=== PATIENT | female | born 1945 | race Caucasian/White ===

== ENCOUNTER 2016-11-16 09:37 | Outpatient (CLI) | payer BC, MEDICARE | END 2016-11-16 09:38 | disposition home or self-care (01) | DX: Z12.31 Encounter for screening mammogram for malignant neoplasm of breast (principal) ==

== ENCOUNTER 2017-01-23 20:19 | Emergency (ER) | payer BC ==
[2017-01-23] MEDS ORDERED: predniSONE 20 MG TABLET PO STA (21:03)
[2017-01-23] MEDS ORDERED: predniSONE 20 MG TABLET ONE (21:09)
== END 2017-01-23 21:14 | disposition home or self-care (01) ==
DX: R22.0 Localized swelling, mass and lump, head (principal); I10 Essential (primary) hypertension; J35.9 Chronic disease of tonsils and adenoids, unspecified; Z79.899 Other long term (current) drug therapy; Z88.0 Allergy status to penicillin
CPT/HCPCS: 99282; 99283; J7512

== ENCOUNTER 2018-02-04 08:00 | Outpatient (CLI) | payer MEDICARE, BC ==
[2018-02-04 18:08] LABS: ALBUMIN 4.3 g/dL (3.2-5.5); ALBUMIN/GLOBULIN RATIO 1.3 (1.0-2.2); ALKALINE PHOSPHATASE 60 IU/L (42-121); ALT ALANINE AMINOTRANSFERASE 19 IU/L (10-60); AST ASPARTATE AMINOTRANSFERASE 24 IU/L (10-42); BILIRUBIN,TOTAL 0.8 mg/dL (0.2-1.0); BUN - BLOOD UREA NITROGEN 18 mg/dL (6-20); CALCIUM 9.1 mg/dL (8.5-10.3); CARBON DIOXIDE - CO2 27 mmol/L (21-32); CHLORIDE 99 mmol/L (101-111); CHOL/HDL RATIO 5.4 (<4.4); CHOLESTEROL 249 mg/dL; CREATININE 0.7 mg/dL (0.4-1.0); GFR - MDRD 82 (>89); GLUCOSE 98 mg/dL (70-100); HDL CHOLESTEROL 46 mg/dL; LDL CHOLESTEROL,CALCULATED 181 mg/dL; LDL/HDL RATIO 3.9 (<4.4); SODIUM 134 mmol/L (135-145); TOTAL PROTEIN 7.5 g/dL (6.7-8.2); VLDL CHOLESTEROL 22 mg/dL
== END 2018-02-04 23:59 ==
LOC: LAB.S 08:00
PROVIDERS: ATTEND Nurse Practitioner Family
DX: I10 Essential (primary) hypertension (principal); E78.5 Hyperlipidemia, unspecified; E87.6 Hypokalemia
CPT/HCPCS: 36415; 80053; 80061; 83721; 84443

== ENCOUNTER 2018-03-13 11:25 | Outpatient (CLI) | payer MEDICARE, BC ==
--- NOTE | 2018-03-14 17:11 | Mammography Report ---
DIGITAL SCREENING MAMMOGRAM: 03/13/2018 CLINICAL INDICATION: A 72-year-old for screening. COMPARISON: 11/2016, 11/2015, 01/2015, 10/2013, 11/2011, 11/2010. TECHNIQUE: Routine CC and MLO projections were obtained of the breasts. FINDINGS: The breasts again demonstrate scattered fibroglandular densities bilaterally. Coarse, typically benign calcifications are present. No suspicious masses, clustered microcalcifications, or regions of architectural distortion are identified. IMPRESSION: BENIGN FINDINGS. RECOMMENDATION: Routine annual screening unless otherwise clinically indicated. BIRADS category 2 benign findings. STANDARD QUALIFYING STATEMENTS 1. This examination was reviewed with the aid of Computed-Aided Detection (CAD). 2. A negative or benign imaging report should not delay biopsy if clinically suspicious findings are present. Consider surgical consultation if warranted. More than 5% of cancers are not identified by imaging. 3. Dense breasts may obscure an underlying neoplasm. TD: 03/14/2018 15:18
== END 2018-03-13 11:26 | disposition home or self-care (01) ==
LOC: DI 11:25
PROVIDERS: ATTEND Nurse Practitioner Family
DX: Z12.31 Encounter for screening mammogram for malignant neoplasm of breast (principal)
CPT/HCPCS: 77067

== ENCOUNTER 2019-04-07 08:02 | Outpatient (CLI) | payer MEDICARE, BC ==
--- NOTE | 2019-04-07 08:40 | Mammography Report ---
Reason: SCREENING MAMMO Procedure Date: 04/07/2019 Accession Number: [id number] / [id number] Procedure: DOMI - Screening Mammo w/Baldemar CPT Code: FULL RESULT: EXAM: Screening Mammo w/Baldemar DATE: 04/07/2019 8:32 AM CLINICAL HISTORY: Screening encounter. No reported risk factors. TECHNIQUE: (B) - Bilateral CC and MLO views were obtained. COMPARISON: 03/13/2018 through 01/15/2015. PARENCHYMAL PATTERN: (A) - The breast(s) demonstrate(s) scattered fibroglandular densities. FINDINGS: There are coarse typically benign calcifications. There are no suspicious masses, calcifications, or areas of distortion. IMPRESSION: Benign findings. BI-RADS category 2. RECOMMENDATION: (ANNUAL) - Recommend routine annual screening mammography. BI-RADS CATEGORY: (2) - Benign Findings. STANDARD QUALIFYING STATEMENTS: 1. This examination was not reviewed with the aid of Computer-Aided Detection (CAD). 2. A negative or benign imaging report should not preclude biopsy if clinically suspicious findings are present. 3. Dense breasts may obscure an underlying neoplasm. 4. This examination was reviewed with the aid of 3D breast imaging (tomosynthesis).
== END 2019-04-07 08:03 | disposition home or self-care (01) ==
LOC: DI 08:02
DX: Z12.31 Encounter for screening mammogram for malignant neoplasm of breast (principal)
CPT/HCPCS: 77063; 77067

== ENCOUNTER 2019-04-09 08:21 | Outpatient (CLI) | payer MEDICARE, BC ==
[2019-04-09 11:36] LABS: BASOPHILS % (AUTO) 0.5 %; EOSINOPHILS # (AUTO) 0.3 10^3/uL (0.0-0.7); EOSINOPHILS % (AUTO) 5.2 %; HGB - HEMOGLOBIN 13.1 g/dL (12.0-16.0); LYMPHOCYTES # (AUTO) 2.8 10^3/uL (1.5-3.5); LYMPHOCYTES % (AUTO) 47.3 %; MEAN CORPUSCULAR HEMOGLOBIN 27.5 pg (27.0-31.0); MEAN CORPUSCULAR HGB CONC 31.6 g/dL (32.0-36.0); MEAN CORPUSCULAR VOLUME 87.2 fL (81.0-99.0); MEAN PLATELET VOLUME 9.8 fL (7.9-10.8); MONOCYTES # (AUTO) 0.5 10^3/uL (0.0-1.0); NEUTROPHILS # (AUTO) 2.3 10^3/uL (1.5-6.6); NEUTROPHILS % (AUTO) 38.8 %; PLT - PLATELET COUNT 302 10^3/uL (130-450); RED BLOOD COUNT 4.76 10^6/uL (4.20-5.40); RED CELL DISTRIBUTION WIDTH 13.2 % (12.0-15.0)
[2019-04-09 11:42] LABS: ALBUMIN 4.2 g/dL (3.2-5.5); ALBUMIN/GLOBULIN RATIO 1.2 (1.0-2.2); ALKALINE PHOSPHATASE 61 IU/L (42-121); ALT ALANINE AMINOTRANSFERASE 22 IU/L (10-60); AST ASPARTATE AMINOTRANSFERASE 26 IU/L (10-42); BILIRUBIN,TOTAL 1.2 mg/dL (0.2-1.0); BUN - BLOOD UREA NITROGEN 20 mg/dL (6-20); CALCIUM 9.2 mg/dL (8.5-10.3); CARBON DIOXIDE - CO2 28 mmol/L (21-32); CHLORIDE 99 mmol/L (101-111); CHOL/HDL RATIO 6.1 (<4.4); CHOLESTEROL 280 mg/dL; CREATININE 0.7 mg/dL (0.4-1.0); GFR - MDRD 82 (>89); GLUCOSE 103 mg/dL (70-100); HDL CHOLESTEROL 46 mg/dL; LDL CHOLESTEROL,CALCULATED 200 mg/dL; LDL/HDL RATIO 4.3 (<4.4); SODIUM 139 mmol/L (135-145); TOTAL PROTEIN 7.7 g/dL (6.7-8.2); VLDL CHOLESTEROL 34 mg/dL
[2019-04-09 11:49] LABS: HB2 TOTAL 13.3 g/dL; HEMOGLOBIN A1C 0.56 g/dL
== END 2019-04-09 08:22 | disposition home or self-care (01) ==
LOC: LAB.F 08:21
PROVIDERS: ATTEND Registered Nurse
DX: E78.5 Hyperlipidemia, unspecified (principal); I10 Essential (primary) hypertension; E87.6 Hypokalemia
CPT/HCPCS: 36415; 80053; 80061; 83036; 83721; 84443; 85025

== ENCOUNTER 2020-04-26 07:53 | Outpatient (CLI) | payer MEDICARE, BC ==
[2020-04-26 15:11] LABS: BASOPHILS % (AUTO) 0.7 %; EOSINOPHILS # (AUTO) 0.2 10^3/uL (0.0-0.7); EOSINOPHILS % (AUTO) 3.2 %; HGB - HEMOGLOBIN 13.8 g/dL (12.0-16.0); LYMPHOCYTES # (AUTO) 3.1 10^3/uL (1.5-3.5); LYMPHOCYTES % (AUTO) 51.7 %; MEAN CORPUSCULAR HEMOGLOBIN 29.1 pg (27.0-31.0); MEAN CORPUSCULAR HGB CONC 32.6 g/dL (32.0-36.0); MEAN CORPUSCULAR VOLUME 89.1 fL (81.0-99.0); MEAN PLATELET VOLUME 10.3 fL (7.9-10.8); MONOCYTES # (AUTO) 0.5 10^3/uL (0.0-1.0); MONOCYTES % (AUTO) 7.5 %; NEUTROPHILS # (AUTO) 2.2 10^3/uL (1.5-6.6); NEUTROPHILS % (AUTO) 36.6 %; PLT - PLATELET COUNT 300 10^3/uL (130-450); RED BLOOD COUNT 4.75 10^6/uL (4.20-5.40); RED CELL DISTRIBUTION WIDTH 12.8 % (12.0-15.0)
[2020-04-26 16:01] LABS: ALBUMIN 4.6 g/dL (3.2-5.5); ALBUMIN/GLOBULIN RATIO 1.7 (1.0-2.2); ALKALINE PHOSPHATASE 53 IU/L (42-121); ALT ALANINE AMINOTRANSFERASE 21 IU/L (10-60); AST ASPARTATE AMINOTRANSFERASE 25 IU/L (10-42); BILIRUBIN,TOTAL 1.3 mg/dL (0.2-1.0); BUN - BLOOD UREA NITROGEN 21 mg/dL (6-20); CALCIUM 9.5 mg/dL (8.5-10.3); CARBON DIOXIDE - CO2 30 mmol/L (21-32); CHLORIDE 100 mmol/L (101-111); CHOL/HDL RATIO 5.7 (<4.4); CHOLESTEROL 274 mg/dL; CREATININE 0.9 mg/dL (0.4-1.0); GLUCOSE 101 mg/dL (70-100); HDL CHOLESTEROL 48 mg/dL; LDL CHOLESTEROL,CALCULATED 203 mg/dL; LDL/HDL RATIO 4.2 (<4.4); SODIUM 138 mmol/L (135-145); TOTAL PROTEIN 7.3 g/dL (6.7-8.2); VLDL CHOLESTEROL 23 mg/dL
== END 2020-04-26 07:54 | disposition home or self-care (01) ==
LOC: LAB.S 07:53
PROVIDERS: ATTEND Registered Nurse
DX: E87.6 Hypokalemia (principal); E78.5 Hyperlipidemia, unspecified; I10 Essential (primary) hypertension
CPT/HCPCS: 36415; 80053; 80061; 83721; 84443; 85025

== ENCOUNTER 2020-11-15 07:52 | Outpatient (CLI) | payer MEDICARE, BC ==
[2020-11-15 15:59] LABS: CHOL/HDL RATIO 5.3 (<4.4); CHOLESTEROL 266 mg/dL; HDL CHOLESTEROL 50 mg/dL; LDL CHOLESTEROL,CALCULATED 189 mg/dL; LDL/HDL RATIO 3.8 (<4.4); VLDL CHOLESTEROL 27 mg/dL
== END 2020-11-15 07:53 | disposition home or self-care (01) ==
LOC: LAB.S 07:52
PROVIDERS: ATTEND Registered Nurse
DX: E78.5 Hyperlipidemia, unspecified (principal)
CPT/HCPCS: 36415; 80061; 83721

== ENCOUNTER 2020-12-14 07:48 | Outpatient (CLI) | payer MEDICARE, BC ==
--- NOTE | 2020-12-14 11:07 | Mammography Report ---
BILATERAL DIGITAL SCREENING MAMMOGRAM 3D/2D: 12/14/2020 CLINICAL: Routine screening. Comparison is made to exams dated: 04/07/2019 mammogram, 03/13/2018 mammogram, 11/16/2016 mammogram, 11/15 mammogram, and 01/15/2015 mammogram - [facility]. There are scattered fibrogla ndular elements in both breasts. No significant masses, calcifications, or other findings are seen in either breast. There has been no significant interval change. IMPRESSION: NEGATIVE There is no mammographic evidence of malignancy. A 1 year screening mammogram is recommended. This exam was interpreted at Station ID: [id number]. NOTE: For mammograms, a report in lay terms will be sent to the patient. Approximately 15% of breast malignancies will not be visualized mammographically. In the management of a palpable breast mass, a negative mammogram must not discourage biopsy of a clinically suspicious lesion. Electronically Signed By: Rikki Farmer M.D. [facility] [place]:12/14/2020 08:51:42 ACR BI-RADS Category 1: Negative 3341F PARENCHYMAL PATTERN: (A) - The breast(s) demonstrate(s) scattered fibroglandular densities. BI-RADS CATEGORY: (1) - 1 RECOMMENDATION: (ANNUAL) - Recommend routine annual screening mammography. [id number] 1 year screening LATERALITY: (B)
== END 2020-12-14 07:49 | disposition home or self-care (01) ==
LOC: DI.S 07:48
PROVIDERS: ATTEND Registered Nurse
DX: Z12.31 Encounter for screening mammogram for malignant neoplasm of breast (principal)

== ENCOUNTER 2022-07-26 07:53 | Outpatient (CLI) | payer MEDICARE, BC ==
--- NOTE | 2022-07-27 09:49 | Mammography Report ---
BILATERAL DIGITAL SCREENING MAMMOGRAM 3D/2D: 07/26/2022 CLINICAL: Routine screening. Comparison is made to exams dated: 12/14/2020 mammogram, 04/07/2019 mammogram, 03/13/2018 mammogram, and 11/16/2016 mammogram - [facility]. There are scattered areas of fibroglandular density in both breasts (category b / 25%-50% glandular t issue). No significant masses, calcifications, or other findings are seen in either breast. There has been no significant interval change. IMPRESSION: NEGATIVE There is no mammographic evidence of malignancy. A 1 year screening mammogram is recommended. Based on the Tyrer Cuzick model (a risk assessment model) the patients lifetime risk is 2.5% and her 10 year risk is 0.0%. According to the ACR, ACS, and NCCN guidelines, an annual breast MRI exam carmencita g with mammogram is recommended if the patients lifetime risk is 20% or greater. This exam was interpreted at Station ID: [id number]. NOTE: For mammograms, a report in lay terms will be sent to the patient. Approximately 15% of breast malignancies will not be visualized mammographically. In the management of a palpable breast mass, a negative mammogram must not discourage biopsy of a clinically suspicious lesion. Electronically Signed By: Willis dang/corinna:07/26/2022 11:01:21 ACR BI-RADS Category 1: Negative 3341F PARENCHYMAL PATTERN: (A) - The breast(s) demonstrate(s) scattered fibroglandular densities. BI-RADS CATEGORY: (1) - 1 RECOMMENDATION: (ANNUAL) - Recommend routine annual screening mammography. [id number] 1 year screening LATERALITY: (B)
== END 2022-07-26 07:54 | disposition home or self-care (01) ==
LOC: DI.S 07:53
DX: Z12.31 Encounter for screening mammogram for malignant neoplasm of breast (principal)

== ENCOUNTER 2023-08-08 09:55 | Outpatient (CLI) | payer MEDICARE, BC ==
--- NOTE | 2023-08-09 09:34 | Mammography Report ---
BILATERAL DIGITAL SCREENING MAMMOGRAM 3D/2D: 08/08/2023 CLINICAL: Routine screening. Comparison is made to exams dated: 07/26/2022 mammogram, 12/14/2020 mammogram, 04/07/2019 mammogram, mammogram, 11/16/2016 mammogram, and 11/15/2015 ultrasound - [facility]. There are scattered areas of fibroglandular density in both breasts (category b / 25%-50% glandular t issue). No significant masses, calcifications, or other findings are seen in either breast. IMPRESSION: NEGATIVE There is no mammographic evidence of malignancy. A 1 year screening mammogram is recommended. Based on the Tyrer Cuzick model (a risk assessment model) the patients lifetime risk is 2.3% and her 10 year risk is 0.0%. According to the ACR, ACS, and NCCN guidelines, an annual breast MRI exam carmencita g with mammogram is recommended if the patients lifetime risk is 20% or greater. This exam was interpreted at Station ID: [id number]. NOTE: For mammograms, a report in lay terms will be sent to the patient. Approximately 15% of breast malignancies will not be visualized mammographically. In the management of a palpable breast mass, a negative mammogram must not discourage biopsy of a clinically suspicious lesion. Electronically Signed By: Melissa Guthrie M.D., PH.D eb/corinna:08/08/2023 23:25:39 letter sent: No_Letter ACR BI-RADS Category 1: Negative 3341F PARENCHYMAL PATTERN: (A) - The breast(s) demonstrate(s) scattered fibroglandular densities. BI-RADS CATEGORY: (1) - 1 Mammogram [id number] 1 year screening LATERALITY: (B)
== END 2023-08-08 09:56 | disposition home or self-care (01) ==
LOC: DI.S 09:55
DX: Z12.31 Encounter for screening mammogram for malignant neoplasm of breast (principal); R92.323 Mammographic fibroglandular density, bilateral breasts

== ENCOUNTER 2024-03-25 03:56 | Emergency (ER) | payer MEDICARE, BC ==
--- NOTE | 2024-03-25 04:09 | ED Physician Documentation ---
History of Present Illness - Stated complaint Stated Complaint: GENERALIZED WEAKNESS - Chief complaint Chief Complaint: Neuro - History obtained from History obtained from: Patient - Additonal information Additional information: HPI from patient. Patient woke at approximately 2:30 AM this morning to use the bathroom. She was pressed to find that she had an unsteady gait. She denies weakness. She initially uses the word "dizziness" and describing why she was unsteady, but she denies vertigo-type sensation (such as spinning or sensation of being pulled in forward or to either side). She denies lightheadedness, and eventually is not sure if dizziness is the right word to describe her symptoms at that time. She says she did speak with her while she was having symptoms and had no difficulty with speech. Aside from denying generalized weakness, she definitively denies any focal/unilateral weakness. In any event, by the time of this HPI, she says the unsteady gait has resolved and she demonstrates by walking around the room (and does so easily and with steady gait). At this point, she is more concerned about nausea and epigastric burning sensation that developed around the same time as when she got up at 2:30 AM to use the bathroom. This symptom has been constant and steadily progressed, with the burning sensation episodically radiating into the anterior midline lower/mid- level chest. There have been no exacerbating or ameliorating factors with any of the symptoms. She denies history of stroke, TIA, GERD. PD PAST MEDICAL HISTORY - Past Medical History Past Medical History: Yes Cardiovascular: Hypertension - Past Surgical History Past Surgical History: No - Present Medications Home Medications: Ambulatory Orders Medication Instructions Recorded Confirmed Enalapril [Vasotec] 20 mg PO DAILY 09/01/13 01/23/17 Amlodipine Besylate 5 mg PO DAILY 01/23/17 01/23/17 Potassium Chloride 10 meq PO DAILY 01/23/17 01/23/17 hydroCHLOROthiazide 25 mg PO DAILY 01/23/17 01/23/17 [Hydrochlorothiazide] predniSONE [Deltasone] 60 mg PO DAILY 5 Days tablet 01/23/17 - Allergies Allergies/Adverse Reactions: Allergies Allergy/AdvReac Type Severity Reaction Status Date / Time Penicillins Allergy Severe Rash Verified 03/25/24 04:07 - Social History Does the pt smoke?: No Smoking Status: Never smoker Does the pt drink ETOH?: No Does the pt have substance abuse?: No - Immunizations Immunizations are current?: No Immunizations: TDAP >10years/unknown - POLST Patient has POLST: No PD ED PE NORMAL - Vitals Vital signs reviewed: Yes - General General: Alert and oriented X 3, No acute distress, Well developed/nourished - Cardiac Cardiac: RRR, No murmur, No gallop, No rub - Respiratory Respiratory: No respiratory distress, Clear bilaterally - Abdomen Abdomen: Normal bowel sounds, Soft, Non tender, Non distended - Derm Derm: Normal color, Warm and dry - Extremities Extremities: No edema Results - Vitals Vitals: Vital Signs - 24 hr 03/25/24 03/25/24 04:04 06:38 Temperature 36.1 C L Heart Rate 72 88 Respiratory 18 18 Rate Blood Pressure 135/100 H 155/89 H O2 Saturation 100 100 Oxygen O2 Source Room air - EKG (time done) No standard instances EKG releavant findings:: EKG personally interpreted by author of this note. Relevant findings are: Rate: Rate (enter#) (72) Rhythm: NSR Pe Ell: Normal Intervals: Normal MI QRS: Normal Ischemia: Normal ST segments, Q waves (V1, V2) - Labs Labs: Laboratory Tests 03/25/24 03/25/24 03/25/24 04:55 04:55 04:55 WBC 8.6 RBC 4.77 Hgb 13.6 Hct 41.2 MCV 86.4 MCH 28.5 MCHC 33.0 RDW 13.0 Plt Count 337 MPV 9.1 Neut # (Auto) 5.7 Lymph # (Auto) 2.1 [place] # (Auto) 0.5 Eos # (Auto) 0.2 Baso # (Auto) 0.1 Absolute Nucleated RBC 0.00 Nucleated RBC % 0.0 Sodium 140 Potassium 3.3 L Chloride 104 Carbon Dioxide 27 Anion Gap 9.0 BUN 20 Creatinine 0.8 Estimated GFR (MDRD) 70 L Glucose 131 H Calcium 9.8 Total Bilirubin 0.5 AST 21 ALT 16 Alkaline Phosphatase 71 Troponin I High Sens 6.1 Total Protein 7.9 Albumin 4.7 Globulin 3.2 Albumin/Globulin Ratio 1.5 Lipase 24 Urine Color Urine Clarity Urine pH Ur Specific [place] Urine Protein Urine Glucose (UA) Urine Ketones Urine Occult Blood Urine Nitrite Urine Bilirubin Urine Urobilinogen Ur Leukocyte Esterase Ur Microscopic Review Urine Culture Comments 03/25/24 05:30 WBC RBC Hgb Hct MCV MCH MCHC RDW Plt Count MPV Neut # (Auto) Lymph # (Auto) [place] # (Auto) Eos # (Auto) Baso # (Auto) Absolute Nucleated RBC Nucleated RBC % Sodium Potassium Chloride Carbon Dioxide Anion Gap BUN Creatinine Estimated GFR (MDRD) Glucose Calcium Total Bilirubin AST ALT Alkaline Phosphatase Troponin I High Sens Total Protein Albumin Globulin Albumin/Globulin Ratio Lipase Urine Color YELLOW Urine Clarity CLEAR Urine pH 5.5 Ur Specific [place] 1.025 Urine Protein NEGATIVE Urine Glucose (UA) NEGATIVE Urine Ketones NEGATIVE Urine Occult Blood NEGATIVE Urine Nitrite NEGATIVE Urine Bilirubin NEGATIVE Urine Urobilinogen 0.2 (NORMAL) Ur Leukocyte Esterase NEGATIVE Ur Microscopic Review NOT INDICATED Urine Culture Comments NOT INDICATED - Rads (name of study) chest xray Relevant Findings:: Prelim report reviewed, See rad report PD Medical Decision Making - ED course Complexity details: reviewed results, re-evaluated patient, considered differential, d/w patient ED course: CBC is entirely normal. Normal high-sensitivity troponin (6.1). Completely normal urinalysis. Mild hypokalemia (3.3), but patient is taking daily potassium. No concerning findings on EKG (Q waves in V1 and V2 but no ST changes to suggest ACS). Unremarkable chest x-ray. She is given 1 L normal saline IV, 4 mg IV Zofran, and 40 mg IV Protonix. She reports significant improvement in the chest burning discomfort with these interventions. Results discussed with patient. CVA-oriented workup is not undertaken, as her symptoms were possibly, though not particularly, suggestive of CVA, but those symptoms have entirely resolved by the time of this evaluation anyway. Thus, I explained to her that TIA remains a possible cause of the unsteady gait she experienced when she first woke up early this a.m. I further explained that she might benefit from other testing outpatient setting in this regard, but that TIA is not a diagnosis that can be demonstrated on any tests in the emergency department. Regarding her chest pain, her description of a burning sensation and her improvement with the Protonix would suggest GERD as a likely cause. Nonetheless, I explained to her that this does not eliminate a cardiac cause is a possibility. This again is another reason for her to need to seek follow-up with her PCP to discuss her symptoms and, and reevaluation, discussed whether further testing is indicated. I advised her to buy either prilosec or nexium and to take one dose per day for two weeks (although she can wait until symptoms reoccur to do so, or else to start tomorrow with first dose of a two-week course of a PPI). Departure - Departure Disposition: 01 Home, Self Care Clinical Impression: Ataxia Chest pain Qualifiers: Chest pain type: unspecified Qualified Code(s): R07.9 - Chest pain, unspecified Condition: Good Instructions: ED Chest Pain Atypical Unkn Cause Follow-Up: CAM SANDOVAL MD [Primary Care Provider] - Comments: There were no concerning nor diagnostic findings on tonight's test. Your EKG was unremarkable and your cardiac enzyme blood test was normal. Your potassium was slightly below normal range (3.3), but not to an extent that would require change in your current medication regimen including the oral potassium that you are already taking. Your urinalysis is normal. The cause of neither of your problems (difficulty with ambulation when he first woke up this morning, burning midline chest pain) is apparent at this time. As we discussed, that the difficulty with coordination and ambulating has resolved leaves open the possibility that you had a TIA. TIA stands for transient ischemic attack; it is basically a stroke due to blockage of an artery to the brain that resolves before any permanent damage is done. Unfortunately, TIA does not show up on any emergency department tests. Realize this is not the definitive diagnosis in this case, just one possible explanation. As for the chest pain, the EKG and cardiac enzyme blood test argue against a cardiac cause of the pain, but these do not rule it out completely. Your description of the symptoms is suggestive of possible heartburn/GERD. If your symptoms happen again, you should take an [id number] acid-blocking medication such as Nexium or Prilosec once per day for 2 weeks. Even if none of your symptoms recur, you should follow-up with your primary care provider as soon as can be arranged. This would be a good idea for reevaluation of your symptoms. You might need further tests even if your symptoms do not recur. Discharge Date/Time: 03/25/24 06:38
[2024-03-25 04:11] VITALS: O2SAT 100
[2024-03-25 05:12] LABS: BASOPHILS # (AUTO) 0.1 10^3/uL (0.0-0.1); BASOPHILS % (AUTO) 0.6 %; EOSINOPHILS # (AUTO) 0.2 10^3/uL (0.0-0.7); EOSINOPHILS % (AUTO) 1.8 %; HCT - HEMATOCRIT 41.2 % (37.0-47.0); HGB - HEMOGLOBIN 13.6 g/dL (12.0-16.0); LYMPHOCYTES # (AUTO) 2.1 10^3/uL (1.5-3.5); LYMPHOCYTES % (AUTO) 24.3 %; MEAN CORPUSCULAR HEMOGLOBIN 28.5 pg (27.0-31.0); MEAN CORPUSCULAR VOLUME 86.4 fL (81.0-99.0); MEAN PLATELET VOLUME 9.1 fL (7.9-10.8); MONOCYTES # (AUTO) 0.5 10^3/uL (0.0-1.0); MONOCYTES % (AUTO) 6.2 %; NEUTROPHILS # (AUTO) 5.7 10^3/uL (1.5-6.6); NEUTROPHILS % (AUTO) 66.9 %; PLT - PLATELET COUNT 337 10^3/uL (130-450); RED BLOOD COUNT 4.77 10^6/uL (4.20-5.40); WHITE BLOOD COUNT 8.6 x10^3/uL (4.8-10.8)
[2024-03-25] MEDS: PANTOPRAZOLE 40 MG VIAL IVP STA (05:20)
[2024-03-25] MEDS: ONDANSETRON 4 MG/2 ML VIAL IVP STA (05:21)
[2024-03-25] MEDS: SODIUM CHLORIDE 0.9% 1,000 ML IV STA (05:21)
[2024-03-25 05:23] LABS: ALBUMIN 4.7 g/dL (3.2-5.5); ALBUMIN/GLOBULIN RATIO 1.5 (1.0-2.2); BILIRUBIN,TOTAL 0.5 mg/dL (0.2-1.0); CALCIUM 9.8 mg/dL (8.5-10.3); CREATININE 0.8 mg/dL (0.6-1.3); POTASSIUM 3.3 mmol/L (3.5-4.5); TOTAL PROTEIN 7.9 g/dL (6.4-8.9)
[2024-03-25 05:41] LABS: BILIRUBIN,URINE NEGATIVE (NEGATIVE); GLUCOSE, URINE (UA) NEGATIVE (NEGATIVE); KETONES,URINE (UA) NEGATIVE (NEGATIVE); LEUKOCYTE ESTERASE, URINE NEGATIVE (NEGATIVE); NITRITE,URINE NEGATIVE (NEGATIVE); OCCULT BLOOD,URINE NEGATIVE (NEGATIVE); PH,URINE 5.5 PH (5.0-7.5); PROTEIN,URINE NEGATIVE (NEGATIVE); UROBILINOGEN,URINE 0.2 (NORMAL) E.U./dL (NORMAL)
[2024-03-25 05:46] LABS: CLARITY,URINE CLEAR (CLEAR)
[2024-03-25 06:47] VITALS: BP 155/89
--- NOTE | 2024-03-25 08:05 | XRAY Report ---
PROCEDURE: Chest 2V INDICATIONS: chest pain TECHNIQUE: 2 views of the chest were acquired. COMPARISON: None. FINDINGS: Surgical changes and devices: None. Lungs and pleura: Low lung volumes. There is eventration of the right hemidiaphragm. No dense consol idation or pleural effusion. Possible mild atelectasis at the right base. Mediastinum: Normal heart size Bones and chest wall: Degenerative changes Age-indeterminate wedging of some thoracic vertebral bodies. IMPRESSION: No acute radiographic abnormality. Eventration of the right hemidiaphragm with possible adjacent right base atelectasis. Agree with preliminary report. Reviewed by: Hua White MD on 03/25/2024 8:03 AM PDT Approved by: Hua White MD on 03/25/2024 8:03 AM PDT Station ID: [id number]
== END 2024-03-25 06:38 | disposition home or self-care (01) ==
LOC: ED 03:56
DX: R27.0 Ataxia, unspecified (principal); R07.9 Chest pain, unspecified; I10 Essential (primary) hypertension; Z79.899 Other long term (current) drug therapy
CPT/HCPCS: 36415; 80053; 81001; 81003; 83690; 84484; 85025; 87086; 93005; 96374; 96375; 99284